=== PATIENT | male | born 1950 | race Caucasian/White ===

== ENCOUNTER 2022-05-24 12:38 | Emergency (ER) | payer MEDICARE ==
[~2022-05-24] VITALS: Ht 180.3 cm; Wt 88.0 kg
[2022-05-24] VITALS (8 sets, daily range): BP systolic 134–159; BP diastolic 59–133
[2022-05-24] MEDS ORDERED: PROTONIX40 M2 PO (13:06)
[2022-05-24] MEDS ORDERED: LORATADINE10 M1 PO (13:06)
[2022-05-24] MEDS ORDERED: CETIRIZINE5 MG PO (13:06)
[2022-05-24] MEDS ORDERED: TRAMADOL HCL50 MG PO (13:07)
[2022-05-24] MEDS ORDERED: XYZAL ALLERGY 245 MG PO (13:07)
[2022-05-24] MEDS ORDERED: TAMSULOSIN0.4 MG PO (13:07)
[2022-05-24] MEDS ORDERED: ZESTRIL10 M1 PO (13:08)
[2022-05-24] MEDS ORDERED: PREDNISONE10 MG PO ×2 (15:02→15:03)
== END 2022-05-24 15:16 | disposition home or self-care (01) ==
LOC: ED 12:38
PROC: 0HQ0XZZ Repair Scalp Skin, External Approach (ICD-10-PCS; principal; 2022-05-24)
DX: S01.01XA Laceration without foreign body of scalp, initial encounter (principal); M54.12 Radiculopathy, cervical region; W01.0XXA Fall on same level from slipping, tripping and stumbling without subsequent striking against object, initial encounter; Y92.008 Other place in unspecified non-institutional (private) residence as the place of occurrence of the external cause